=== PATIENT | male | born 1980 | race Caucasian/White ===

== ENCOUNTER 2016-08-16 11:41 | Emergency (ER) | payer BC ==
[2016-08-16 13:46] VITALS: BP 114/87
--- NOTE | 2016-08-16 14:19 | UC ---
Throat Pain/Nasal Andrés HPI - HPI Summary HPI Summary: ST starting yesterday. Mild, denies fever or coughing. dx with strep about a week ago, children have impetigo on their faces right now. - History of Current Complaint Chief Complaint: UCGeneralIllness Stated Complaint: SORE THROAT Time Seen by Provider: 08/16/16 13:57 Hx Obtained From: Patient Onset/Duration: Sudden Onset, Lasting Days Severity: Mild Cough: None Associated Signs & Symptoms: Negative: Sinus Discomfort, Nasal Discharge, Fever , Vomiting, Rash - Allergies/Home Medications Allergies/Adverse Reactions: Allergies Allergy/AdvReac Type Severity Reaction Status Date / Time Cephalexin Allergy Severe extreme Verified 08/10/15 09:55 nausea/vomitting PMH/Surg Hx/FS Hx/Imm Hx Previously Healthy: Yes Endocrine History Of: Denies: Diabetes, Thyroid Disease Cardiovascular History Of: Denies: Cardiac Disorders, Hypertension Respiratory History Of: Denies: COPD, Asthma GI/ History Of: Denies: Ulcer - Surgical History Surgical History: None - Family History Known Family History: Negative: Blood Disorder - Social History Occupation: Employed Full-time Lives: With Family Alcohol Use: None Substance Use Type: None Smoking Status (MU): Never Smoked Tobacco Review of Systems Constitutional: Negative Skin: Negative Eyes: Negative ENT: Sore Throat Respiratory: Negative Cardiovascular: Negative Gastrointestinal: Negative Genitourinary: Negative Motor: Negative Neurovascular: Negative Musculoskeletal: Negative Neurological: Negative Psychological: Negative All Other Systems Reviewed And Are Negative: Yes Physical Exam Triage Information Reviewed: Yes Appearance: Well-Appearing, No Pain Distress, Well-Nourished Vital Signs: Initial Vital Signs Temp 98.0 F 08/16/16 13:42 Pulse 70 08/16/16 13:42 Resp 16 08/16/16 13:42 BP 114/87 08/16/16 13:42 Pulse Ox 100 08/16/16 13:42 Vital Signs Reviewed: Yes Eye Exam: Normal Eyes: Positive: Conjunctiva Clear ENT: Positive: Normal ENT inspection, Hearing grossly normal, Pharynx normal, TMs normal, Tonsillar exudate - minimal R side Dental Exam: Normal Neck exam: Normal Neck: Positive: Supple, Nontender, No Lymphadenopathy Respiratory Exam: Normal Respiratory: Positive: Chest non-tender, Lungs clear, Normal breath sounds, No respiratory distress, No accessory muscle use Cardiovascular Exam: Normal Cardiovascular: Positive: RRR, No Murmur Musculoskeletal Exam: Normal Neurological Exam: Normal Psychological Exam: Normal Skin Exam: Normal Throat Pain/Nasal Course/Dx - Differential Dx/Diagnosis Provider Diagnoses: strep pharyngitis Discharge - Discharge Plan Condition: Stable Disposition: HOME Prescriptions: Amoxicillin (*) 875 mg PO BID #20 tab Patient Education Materials: Strep Throat (ED) Referrals: No Primary Care Phys,NOPCP [Primary Care Provider] -
== END 2016-08-16 14:28 | disposition home or self-care (01) ==
LOC: UCEAST 11:41
DX: J02.0 Streptococcal pharyngitis (principal); Z88.1 Allergy status to other antibiotic agents
CPT/HCPCS: 87651; 99212; G0463

== ENCOUNTER 2017-07-05 16:58 | Emergency (ER) | payer BC ==
[2017-07-05 17:45] VITALS: BP 113/85
[2017-07-05] MEDS ORDERED: Rabies VIRUS VACCINE (Imovax)* 2.5 UNIT/ML 1 ML IM ONE (17:49)
[2017-07-05] MEDS ORDERED: Rabies Immune Globulin 2 ML* 150 UNITS/ML VIAL IM ONE (17:49)
[2017-07-05] MEDS ORDERED: Rabies Immune Globulin 10 ML* 150 UNIT/ML VIAL IM ONE (17:49)
--- NOTE | 2017-07-05 18:25 | UC ---
Bite Injury/Animal HPI - HPI Summary HPI Summary: There was a bat loose in the house 3 and 4 nights ago, bat was never caught or trapped. No new injuries, no recent symptoms of illness. Otherwise well. - History of Current Complaint Hx Obtained From: Patient Onset/Duration: Sudden Onset Type of Bite: Wild Animal Has Animal Been Immunized?: N/A Aggravating Factor(s): Nothing Alleviating Factor(s): Nothing Associated Signs And Symptoms: Positive: Negative Hx of Bite: Unprovoked Animal Available for Observation: No Animal Control Notified: Yes <Chanelle Snyder - Last Filed: 07/05/17 18:20> <Isatu Jose - Last Filed: 07/06/17 10:29> - History of Current Complaint Chief Complaint: UCBiteInjury Stated Complaint: RABIES Time Seen by Provider: 07/05/17 17:45 - Allergies/Home Medications Allergies/Adverse Reactions: Allergies Allergy/AdvReac Type Severity Reaction Status Date / Time Cephalexin Allergy Severe extreme Verified 07/05/17 17:45 nausea/vomitting PMH/Surg Hx/FS Hx/Imm Hx Previously Healthy: Yes - Surgical History Surgical History: None - Family History Known Family History: Negative: Blood Disorder - Social History Occupation: Employed Full-time Lives: With Family Alcohol Use: None Substance Use Type: None Smoking Status (MU): Never Smoked Tobacco <Chanelle Snyder - Last Filed: 07/05/17 18:20> Review of Systems Constitutional: Negative Skin: Negative Eyes: Negative ENT: Negative Respiratory: Negative Cardiovascular: Negative Gastrointestinal: Negative Genitourinary: Negative Motor: Negative Neurovascular: Negative Musculoskeletal: Negative Neurological: Negative Psychological: Negative Is Patient Immunocompromised?: No All Other Systems Reviewed And Are Negative: Yes <Chanelle Snyder - Last Filed: 07/05/17 18:20> Physical Exam Triage Information Reviewed: Yes Appearance: Well-Appearing, No Pain Distress, Well-Nourished Vital Signs: Initial Vital Signs Temp 97.6 F 07/05/17 17:42 Pulse 81 07/05/17 17:42 Resp 14 07/05/17 17:42 BP 113/85 07/05/17 17:42 Pulse Ox 99 07/05/17 17:42 Vital Signs Reviewed: Yes Eye Exam: Normal Eyes: Positive: Conjunctiva Clear ENT Exam: Normal ENT: Positive: Normal ENT inspection, Hearing grossly normal, Pharynx normal, TMs normal Dental Exam: Normal Neck exam: Normal Neck: Positive: Supple, Nontender, No Lymphadenopathy Respiratory Exam: Normal Respiratory: Positive: Chest non-tender, Lungs clear, Normal breath sounds, No respiratory distress, No accessory muscle use Cardiovascular Exam: Normal Cardiovascular: Positive: RRR, No Murmur Musculoskeletal Exam: Normal Neurological Exam: Normal Neurological: Positive: Alert Psychological Exam: Normal Skin Exam: Normal <Chanelle Snyder - Last Filed: 07/05/17 18:20> Vital Signs: Initial Vital Signs Temp 97.6 F 07/05/17 17:42 Pulse 81 07/05/17 17:42 Resp 14 07/05/17 17:42 BP 113/85 07/05/17 17:42 Pulse Ox 99 07/05/17 17:42 <Isatu Jose - Last Filed: 07/06/17 10:29> Bite Injury Course/Dx - Differential Dx/Diagnosis Provider Diagnoses: Rabies exposure. rabies prophylaxis <Chanelle Snyder - Last Filed: 07/05/17 18:20> Discharge <Chanelle Snyder - Last Filed: 07/05/17 18:20> <Isatu Jose - Last Filed: 07/06/17 10:29> - Discharge Plan Condition: Stable Disposition: HOME Patient Education Materials: Rabies Vaccine (ED) Referrals: No Primary Care Phys,NOPCP [Primary Care Provider] - Additional Instructions: Please follow up with the [facility]. For further vaccines. Attestation Statement User Type: Provider - I was available for consult. This patient was seen by the [facility]. The patient was not presented to, seen by, or examined by me. -Radhames <Isatu Jose - Last Filed: 07/06/17 10:29>
== END 2017-07-05 19:00 | disposition home or self-care (01) ==
LOC: UCEAST 16:58
DX: Z20.3 Contact with and (suspected) exposure to rabies (principal); Z23 Encounter for immunization; Z88.1 Allergy status to other antibiotic agents
CPT/HCPCS: 90375; 90471; 96372; 99211; G0463

== ENCOUNTER 2018-10-08 18:34 | Emergency (ER) | payer BC ==
[2018-10-08 19:23] VITALS: BP 122/87
--- NOTE | 2018-10-08 19:36 | UC ---
FLU HPI - HPI Summary HPI Summary: About 6 days ago had episodes of lightheadedness and vertigo lasting one day, improved. Now has had fever, cough and myalgias. Flu A is negative, although son 's test ispositive. - History of Current Complaint Chief Complaint: UCRespiratory Stated Complaint: FEVER Time Seen by Provider: 10/08/18 19:14 Hx Obtained From: Patient Onset/Duration: Gradual Onset, Lasting Days Pain Intensity: 6 Associated Signs & Symptoms: Positive: Fever, Cough, Headache - Risk Factors Influenza Risk Factors: Negative - Allergy/Home Medications Allergies/Adverse Reactions: Allergies Allergy/AdvReac Type Severity Reaction Status Date / Time cephalexin Allergy See Comment Verified 10/08/18 19:24 Home Medications: Home Medications D-Methorphan/PE/Acetaminophen [Theraflu Expressmax Day Caplet] 10/08/18 [ History] PMH/Surg Hx/FS Hx/Imm Hx Previously Healthy: Yes - Surgical History Surgical History: None - Family History Known Family History: Positive: Non-Contributory Negative: Blood Disorder - Social History Occupation: Employed Full-time Lives: With Family Alcohol Use: Daily Substance Use Type: None Smoking Status (MU): Never Smoked Tobacco Review of Systems All Other Systems Reviewed And Are Negative: Yes Constitutional: Positive: Fever, Fatigue Skin: Positive: Negative Eyes: Positive: Negative ENT: Positive: Negative Respiratory: Positive: Shortness Of Breath, Cough Cardiovascular: Positive: Negative Gastrointestinal: Positive: Negative Genitourinary: Positive: Negative Motor: Positive: Negative Neurovascular: Positive: Negative Musculoskeletal: Positive: Negative Neurological: Positive: Negative Psychological: Positive: Negative Is Patient Immunocompromised?: No Physical Exam Appearance: Ill-Appearing - looks mildly unwell Vital Signs: Initial Vital Signs Temp 100.0 F 10/08/18 19:18 Pulse 98 10/08/18 19:18 Resp 16 10/08/18 19:18 BP 122/87 10/08/18 19:18 Pulse Ox 99 10/08/18 19:18 Eye Exam: Normal Eyes: Positive: Conjunctiva Clear ENT Exam: Normal ENT: Positive: Pharynx normal, TMs normal Neck exam: Normal Neck: Positive: Supple, Nontender, No Lymphadenopathy Respiratory Exam: Normal Respiratory: Positive: Lungs clear, Normal breath sounds Cardiovascular Exam: Normal Cardiovascular: Positive: RRR, No Murmur Musculoskeletal Exam: Normal Neurological Exam: Normal Psychological Exam: Normal Skin Exam: Normal Diagnostics - Laboratory Diagnostic Studies Completed/Ordered: rapid flu A is negative Flu Course/Dx - Course Course Of Treatment: symptomatic treatment of flu like illness. - Differential Dx/Diagnosis Provider Diagnosis: Viral syndrome Discharge - Sign-Out/Discharge Documenting (check all that apply): Patient Departure All imaging exams completed and their final reports reviewed: No Studies - Discharge Plan Condition: Stable Disposition: HOME Patient Education Materials: Viral Syndrome (ED) Referrals: Juan Cid NP [Primary Care Provider] - Additional Instructions: Your findings are consistent with a flu like illness, despite the negaitve test. Continue symptomatic treatment with fluids, ibupofen as needed for fever and aches, rest at home. - Billing Disposition and Condition Condition: STABLE Disposition: Home
[2018-10-08 20:11] LABS: Influenza A Molecular NEGATIVE (Negative); Influenza B Molecular NEGATIVE (Negative)
== END 2018-10-08 20:55 | disposition home or self-care (01) ==
LOC: UCEAST 18:34
DX: B34.9 Viral infection, unspecified (principal); R05 Cough; R51 Headache; R42 Dizziness and giddiness; M79.10 Myalgia, unspecified site
CPT/HCPCS: 99211; G0463